=== PATIENT | female | born 1970 | race Caucasian/White ===

== ENCOUNTER 2016-11-05 06:41 | Inpatient (IN) | payer OTHER ==
[2016-10-25 14:42] LABS: HEMATOCRIT 40.7 % (36.0-48.0); HEMOGLOBIN 13.6 g/dL (12.0-16.0)
--- NOTE | ~2016-11-05 | OP ---
Record Of Operation [facility] [address] [place]. [address] NAME: GIULIANA PADGETT : 68 STATUS : DIS IN PAT#: [id number] AGE: 46 ADM/REG DATE : 11/05/16 MR#: [id number] REPORT SERV DATE: 11/12/16 DICTATED BY: FELIPA NELSON II DATE: 11/12/16 REPORT STATUS : Draft TRANSCRIBED BY: MODDonny DATE: 11/12/16 DATE OF PROCEDURE: 11/05/2016 PREOPERATIVE DIAGNOSES: 1. Right lower extremity radiculopathy. 2. L4-5, L5-S1 stenosis with Modic changes. POSTOPERATIVE DIAGNOSES: 1. Right lower extremity radiculopathy. 2. L4-5, L5-S1 stenosis with Modic changes. PROCEDURE: 1. Lumbar laminectomy and facetectomy at L4-5, L5-S1 for decompression of the compressed nerve roots. 2. Interbody arthrodesis, L4-5, L5-S1. 3. Application of prosthetic device, L4-5, L5-S1. 4. Posterolateral arthrodesis, L4-5, L5-S1. 5. Posterior segmental instrumentation, L4-5, L5-S1. 6. Use of local autograft, allograft substitute, and bone morphogenetic protein. 7. Use of the microscope and stereotactic spinal imaging. SURGEON: Felipa Nelson M.D. FLUIDS: 1600 mL LR. EBL: 120 mL. DRAINS: One drain. COMPLICATIONS: None. IMPLANTS: Alphatec. PREOPERATIVE HISTORY: This is a very friendly 46-year-old female, who reports a significant low back pain worse with sitting. She reports the pain radiates into the buttock and down the posterior thigh and occasionally below the knee. We discussed the pros and cons of continuing nonoperative care versus surgery. We discussed the rates of success versus failure of the surgery to decrease back pain and leg symptoms respectively. We discussed likely the chronic nature of numbness and tingling. DESCRIPTION OF PROCEDURE: After informed consent was obtained, the patient was brought to the operating room at her request and general anesthesia achieved. She was placed in the prone position. The back was prepped and draped in a sterile fashion. The stereotactic spinal pin was placed into the iliac crest on the left side and the intraoperative CT scan completed. Stereotactic guidance was then used throughout the case. Record Of Operation [facility] [address] [place]. [address] NAME: GIULIANA PADGETT : 68 STATUS : DIS IN PAT#: [id number] AGE: 46 ADM/REG DATE : 11/05/16 MR#: [id number] REPORT SERV DATE: 11/12/16 DICTATED BY: FELIPA NELSON II DATE: 11/12/16 REPORT STATUS : Draft TRANSCRIBED BY: ADAMA DATE: 11/12/16 The minimally invasive incision was performed on the right at L4-5 and L5-S1. The quadrant retractor was placed including the medial to lateral blades. The microscope was then brought into place, and under microscopic visualization, the facet capsules were removed at L4-5 and L5-S1. We also then dissected upon the transverse processes of L4 and L5 and the sacral ala. The area was now overall well identified and visual landmarks confirmed with the stereotactic guidance. The facetectomy was performed at L4-5. The pars was now removed. This was done again overall to decompress the neural elements at L4-5. The central canal was now well decompressed and the hypertrophic ligamentum flavum removed. This well decompressed the central canal and the lateral recess. The additional pars was now removed to better decompress the L4 nerve root in the foraminal zone. Next, the interbody arthrodesis was initiated at L4-5 with diskectomy. The endplates were prepared with the curettes and the bernice. The pituitary rongeurs were now used to remove the disk and cartilage. The area was now irrigated followed by confirmation of punctate bleeding bone. Next, the local autograft, allograft substitute, and bone morphogenic protein were then placed into the anterior column. The prosthetic device was then trialed and placed at L4-5 into the anterior column. Next, we then addressed the L5-S1 level with a similar approach. The pars was now taken down and both facets were removed. Once again, the L5 and S1 nerve roots were found to have some degree of stenosis upon them. The compression was now alleviated with the Kerrison rongeurs. Next, the interbody arthrodesis was initiated with diskectomy and endplate preparation with the pituitary rongeurs, Kerrison rongeurs, and the bernice. The punctate bleeding bone was identified on both endplates. The area was now irrigated. Next, the prosthetic device was chosen and placed at L5-S1. This contained allograft substitute and a small portion of bone morphogenic protein. The additional local autograft was also placed into the anterior column. At this point, stereotactic guidance was used to place pedicle screws bilaterally. Percutaneous screws were placed upon the left. The area was now reexamined with a repeat CT scan. This confirmed acceptable placement of the implants. The rods were then assembled and final tightening performed. Next, the decortication was performed of the transverse processes of L4 and L5 and the sacral ala. Local autograft, allograft substitute, and bone morphogenic protein were placed along the decorticated surfaces. A deep drain was placed followed by standard closure, and the patient was extubated and transferred to PACU in stable condition. Record Of Operation [facility] [address] [place]. [address] NAME: GIULIANA PADGETT : 68 STATUS : DIS IN PAT#: [id number] AGE: 46 ADM/REG DATE : 11/05/16 MR#: [id number] REPORT SERV DATE: 11/12/16 DICTATED BY: FELIPA NELSON II DATE: 11/12/16 REPORT STATUS : Draft TRANSCRIBED BY: ADAMA DATE: 11/12/16 TONA/ADAMA Felipa Nelson II, M.D. / [id number] CC: Sol Robledo II, M.D.
[~2016-11-05 06:41] MED LIST: B121000P IM; FLEX PO; FLONASE NAS; NORCO1 TA2 PO; PREV15 PO; VOLT25 PO
[2016-11-07] MEDS ORDERED: MSCONTIN PO (07:52)
[2016-11-07] MEDS ORDERED: PERCOCET 10/3251 TAB PO (07:52)
[2016-11-07] MEDS ORDERED: V2 PO (07:52)
== END 2016-11-07 15:34 | disposition home or self-care (01) | DRG 460 ==
LOC: SDC/OF 06:41 → PACU 13:00 → 3SO 14:00
PROVIDERS: Orthopaedic Surgery
PROC: 0SG00AJ Fusion of Lumbar Vertebral Joint with Interbody Fusion Device, Posterior Approach, Anterior Column, Open Approach (ICD-10-PCS; principal; 2016-11-05 08:45)
PROC: 0SG30AJ Fusion of Lumbosacral Joint with Interbody Fusion Device, Posterior Approach, Anterior Column, Open Approach (ICD-10-PCS; 2016-11-05 08:45)
PROC: 0ST20ZZ Resection of Lumbar Vertebral Disc, Open Approach (ICD-10-PCS; 2016-11-05 08:45)
PROC: 0ST40ZZ Resection of Lumbosacral Disc, Open Approach (ICD-10-PCS; 2016-11-05 08:45)
PROC: 4A11X4G Monitoring of Peripheral Nervous Electrical Activity, Intraoperative, External Approach (ICD-10-PCS; 2016-11-05 08:45)
DX: M51.16 Intervertebral disc disorders with radiculopathy, lumbar region (principal); F17.210 Nicotine dependence, cigarettes, uncomplicated; K21.9 Gastro-esophageal reflux disease without esophagitis
CPT/HCPCS: 82962; 84703; 85014; 85018; 87641; 88304; 88311; 97116-GP; 97161-GP; A9270-GY; C1713; C1768; C1769; J0690; J1170; J2250; J2405; J2710; J3010